=== PATIENT | male | born 1945 | race Caucasian/White ===

== ENCOUNTER 2021-02-04 06:43 | Inpatient (IN) | payer OTHER ==
[~2021-02-04] VITALS: Ht 185.4 cm; Wt 108.4 kg
[2021-02-04] VITALS (13 sets, daily range): BP systolic 126–1478; BP diastolic 59–87
[~2021-02-04 06:43] MED LIST: ASPIR 8181 MG PO; ENFORGE PO; PEPCID40 MG PO; PHENERGAN 25 MG25 M1 PO; PROMS25 WY RECTAL
[2021-02-04 07:07] LABS: ABSOLUTE NEUTROPHILS 7.6 thou/uL (1.4-8.2); BASOPHILS 1.3 % (0.0-2.0); EOSINOPHILS 1.9 % (0.0-3.0); HEMATOCRIT 42.5 % (42.0-52.0); HEMOGLOBIN 14.3 gm/dL (14.0-18.0); LYMPHOCYTES 22.9 % (24.0-44.0); MCH 29.6 pg (26.0-34.0); MCHC 33.5 g/dL (28.0-37.0); MCV 88.2 fL (80.0-100.0); MONOCYTES 8.9 % (1.0-8.0); PLATELET COUNT 220 thou/uL (150-400); RBC 4.82 mil/uL (4.50-6.00); RDW 13.3 % (10.5-14.5); WBC 11.7 thou/uL (4.0-11.0)
[2021-02-04] MEDS ORDERED: VALSARTAN PO (07:07)
[2021-02-04] MEDS ORDERED: AMLODIPINE PO (07:07)
[2021-02-04 07:18] LABS: CALCIUM 8.6 mg/dL (8.5-10.1)
[2021-02-04 07:19] LABS: POTASSIUM 4.1 mmol/L (3.5-5.1)
--- NOTE | 2021-02-04 07:27 | EKG ---
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1945 Requested By: Isabelle Sarmiento Order Number: [id number] MD: Sam Nobles Measurements Intervals [place] Rate: 59 P: 70 OR: 185 QRS: 54 QRSD: 97 T: 83 QT: 422 QTc: 418 Interpretive Statements Sinus rhythm Inferior infarct, old 1/[address] elecvation inferior leads Compared to ECG 12/10/2015 08:32:04 Myocardial infarct finding now present Atrial premature complex(es) no longer present Electronically Signed On 02-04-2021 7:26:51 CDT by Sam Nobles [email or web address] <ELECTRONICALLY SIGNED> By: Sam Nobles MD, [facility] 02/04/21 0726 0649 8 Sam Nobles MD, FACC /EPI
[2021-02-04 07:28] LABS: PROTIME 10.4 Seconds (9.3-11.4); TOTAL BILIRUBIN 0.4 mg/dL (0.2-1.0); TOTAL PROTEIN 7.7 g/dL (6.4-8.2); TROPONIN-I 0.1 ng/mL (<0.06)
[2021-02-04 07:35] LABS: D-DIMER 0.34 ug/mLFEU (0.19-0.50)
[2021-02-04] MEDS ORDERED: COSOPT OCUMETER10 M1 EA. EYE (08:36)
[2021-02-04 09:47] LABS: CHOLESTEROL 173 mg/dL (<200); HDL CHOLESTEROL 48 mg/dL (>40); LDL CHOLESTEROL 104 mg/dL (<100); TC:HDL 3.6 Ratio (Not establshd); TRIGLYCERIDE 105 mg/dL (<150); VLDL 21 mg/dL (<40)
[2021-02-04 23:06] LABS: GLYCOHEMOGLOBIN (HGB A1C) 5.5 % (4.8-5.6)
[2021-02-05 00:10] VITALS: BP 118/65
[2021-02-05 03:35] VITALS: BP 105/68
[2021-02-05 04:54] LABS: BASOPHILS 0.6 % (0.0-2.0); EOSINOPHILS 0.2 % (0.0-3.0); HEMATOCRIT 39.2 % (42.0-52.0); LYMPHOCYTES 17.6 % (24.0-44.0); MCH 29.6 pg (26.0-34.0); MCHC 33.2 g/dL (28.0-37.0); MCV 89.1 fL (80.0-100.0); MONOCYTES 13.1 % (1.0-8.0); PLATELET COUNT 197 thou/uL (150-400); POLYS 68.5 % (36.0-66.0); RDW 13.7 % (10.5-14.5); WBC 13.1 thou/uL (4.0-11.0)
[2021-02-05 05:15] LABS: ALBUMIN 3.5 g/dL (3.4-5.0); CALCIUM 8.1 mg/dL (8.5-10.1); CREATININE 1.1 mg/dL (0.7-1.3); POTASSIUM 4.1 mmol/L (3.5-5.1); TOTAL BILIRUBIN 0.4 mg/dL (0.2-1.0); TOTAL PROTEIN 6.9 g/dL (6.4-8.2)
[2021-02-05 05:23] LABS: TROPONIN-I 51.46 ng/mL (<0.06)
--- NOTE | 2021-02-05 07:03 | EKG ---
[place] [address] [facility] [place] [address] ELECTROCARDIOGRAM REPORT Name: KAROLINA FANG Room #: 212-P ADM IN M.R.#: [id number] Admission: 02/04/21 Attend Phys: Jt Barrett MD Discharge: Date of : 47 Report #: [id number] 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 : 1945 Requested By: Jonas Hummel Order Number: [id number] MD: Sam Nobles Measurements Intervals [place] Rate: 56 P: 72 [place]: 175 QRS: 24 QRSD: 103 T: -17 QT: 436 QTc: 421 Interpretive Statements Sinus rhythm Abnormal R-wave progression, early transition Inferior infarct, age indeterminate Compared to ECG 02/04/2021 06:49:35 No significant changes Electronically Signed On 02-05-2021 7:03:17 CDT by Sam Nobles [email or web address] <ELECTRONICALLY SIGNED> By: Sam Nobles MD, [facility] 02/05/21702 06 Sam Nobles MD, [facility] /EPI
[2021-02-05] MEDS ORDERED: ASPIRIN325 PO (08:52)
[2021-02-05] MEDS ORDERED: CLOPIDOGREL75 MG PO (08:52)
[2021-02-05] MEDS ORDERED: PACERONE 200 M200 M1 PO (08:52)
[2021-02-05] MEDS ORDERED: METOPROLOL TART25 MG PO (08:52)
[2021-02-05] MEDS ORDERED: LIPITOR40 MG PO (08:52)
--- NOTE | 2021-02-05 09:21 | 2DMMODE ---
[facility] [place] [address] 2 D/M-MODE ECHOCARDIOGRAM Name: KAROLINA FANG Room #: 212-P ADM IN M.R.#: [id number] Admission: 02/04/21 Attend Phys: Jt Barrett MD Discharge: Date of : 47 Report #: [id number] THIS REPORT FOR: cc: Artie Dean MD, Kirk D. MD Santiago, Patrick MD [facility] ~ APPROVED REPORT Study performed: 02/05/2021 06:18:17 EXAM: Comprehensive 2D, Doppler, and color-flow Echocardiogram Patient Location: Bedside Room #: 212 Status: routine BSA: 2.30 HR: 55 bpm BP: 105/68 mmHg Rhythm: NSR/PACs Other Information Study Quality: Fair Technically limited study due to obesity. Indications Chest pain, shortness of breath. Hx: HTN. Echo Enhancing Agent Indication: Endocardial border delineation Agent(s) / Amount(s) Used: Optison 3 cc 2D Dimensions RVDd: 34.46 mm IVSd: 10.39 (7-11mm) LVOT Diam: 21.31 (18-24mm) LVDd: 42.01 mm PWd: 9.95 (7-11mm) Ascending Ao: 31.44 (22-36mm) LVDs: 27.67 (25-40mm) Aortic Root: 32.69 mm Volumes Left Atrial Volume (Systole) Single Plane 4CH: 66.92 mL Single Plane 2CH: 68.75 mL Aortic Valve [facility] [address] [place] [address] 2 D/M-MODE ECHOCARDIOGRAM Name: KAROLINA FANG Room #: 212-[facility] IN [facility].#: [id number] Admission: 02/04/21 Attend Phys: Joshua Dwyer Discharge: Date of : 47 Report #: [id number] AoV Peak Manolo.: 1.14 m/s AO Peak Gr.: 5.24 mmHg Mitral Valve E/A Ratio: 1.1 MV Decel. Time: 187.12 ms MV E Max Manolo.: 0.76 m/s MV A Manolo.: 0.69 m/s MV PHT: 54.26 ms IVRT: 64.59 ms Pulmonary Valve PV Peak Manolo.: 0.79 m/s PV Peak Gr.: 2.47 mmHg Pulmonary Vein P Vein S: 0.40 m/s P Vein A: 0.26 m/s P Vein D: 0.27 m/s P Vein A Dur.: 120.0 msec P Vein S/D Ratio: 1.48 Tricuspid Valve TR Peak Manolo.: 2.19 m/s RAP Estimate: 15.00 mmHg TR Peak Gr.: 19.25 mmHg PA Pressure: 34.00 mmHg Left Ventricle The left ventricle is normal size. There is normal left ventricular wall thickness. Left ventricular systolic function is normal. LVEF is 50-55%. The left ventricular diastolic function is normal. Right Ventricle The right ventricle is normal size. The right ventricular systolic function is normal. Atria The left atrium size is normal. The right atrium size is normal. Aortic Valve Aortic valve is trileaflet. Leaflets are mildly calcified. Trace aortic regurgitation. There is no aortic valvular stenosis. Mitral Valve The mitral valve is normal in structure. There is no mitral valve regurgitation noted. No evidence of mitral valve stenosis. Tricuspid Valve [facility] [address] [place] [address] 2 D/M-MODE ECHOCARDIOGRAM Name: KAROLINA FANG Room #: 212-P [facility] IN .R.#: [id number] Admission: 02/04/21 Attend Phys: Joshua Dwyer Discharge: Date of : 47 Report #: [id number] The tricuspid valve is normal in structure. Mild to moderate tricuspid regurgitation. Estimated PAP is 30-35mmHg. Pulmonic Valve Pulmonic valve is not well visualized. There is no pulmonic valvular regurgitation. Great Vessels The aortic root is normal in size. The ascending aorta is normal in size. IVC is dilated and collapses <50% with inspiration. Pericardium There is no pericardial effusion. <Conclusion> Normal left ventricular size/wall thickness and Ejection fraction 55% with minimal inferobasilar hypokinesis Normal right ventricular size/function Normal atrial size Color-flow Doppler study was performed of the aortic/mitral/tricuspid/pulmonary valve Normal aortic/mitral valve structure and function Mild pulmonary hypertension Pulmonary systolic pressure estimated 35 mmHg No pericardial effusion Normal aortic root size. <ELECTRONICALLY SIGNED> By: Sam Nobles MD, FACC 02/05/21920 0 0 Sam Nobles MD, FACC /INF
[2021-02-05 09:44] VITALS: BP 135/60
--- NOTE | 2021-02-05 09:49 | CATHLAB ---
[facility] [place] [address] INVASIVE PROCEDURE REPORT Name: KAROLINA FANG Charlene Room #: 212-P ADM IN M.R.#: [id number] Admission: 02/04/21 Attend Phys: Jt Barrett MD Discharge: Date of : 47 Report #: [id number] THIS REPORT FOR: cc: Artie Dean MD, Kirk D. MD Park, Jin S. MD ~ APPROVED REPORT Study performed: 02/04/2021 12:12:37 Patient Details Patient Status: ED Room #: The patient is a 75 year-old male Event Personnel Jonas Hummel Jet Piercer Operator, Bushra Garrett RTR Monitor, Hazel Kwong RTR, Tarun Macias Dexter RN RN, Mychal Amin RTR Shafting Cleaner Procedures Performed Art Access - R femoral artery* Left Heart Cath w/or w/o Coronaries [id number] [facility] DAVID Place w/wo Plasty Single RCA 542455 Hemostasis w/ Mynx 24476 Initial Mod Sed Same Phys/QHP Gr5y 670237 17302 Mod Sed Same Phys/QHP Ea 830127 Indication Non-STEMI , Dyspnea, Chest pain Risk Factors Hypercholesterolemia, Hypertension Procedure Narrative The Right Groin^ was infiltrated with 1% Lidocaine subcutaneous anesthesia. A PINNACLE 6FR Sheath #[id number] sheath was inserted into the RFA^. Coronary angiography was performed using coronary diagnostic catheters. The right coronary system was accessed and visualized with a JR4 catheter. The left coronary system was accessed and visualized with a JL4 catheter. The left ventricle was accessed and visualized with a PIGTAIL catheter. Left ventriculogram was performed in 30 degree projection. Pre-demployment femoral angiogram was performed . Closure device was deployed with a Fr MYNXGRIP 6/7F #[id number]. The patient tolerated the procedure well and there were no complications associated with the procedure. There was no hematoma. [facility] [address] [place] [address] INVASIVE PROCEDURE REPORT Name: KAROLINA FANG Room #: 212-P [facility] IN ..#: [id number] Admission: 02/04/21 Attend Phys: Joshua Dwyer Discharge: Date of : 47 Report #: [id number] Intraoperative Conscious Sedation Sedation start time: 13:07 Case end Time: 14:26 Fentanyl 100 mcg Versed 1 mg Fluoro Time: 11.70 minutes Dose: DAP 26606.10 cGycm2 3602 mGy Contrast Type and Amount: Omnipaque 217 ml Coronary Angiography The patient's coronary anatomy is co- dominant. Diagnostic Cath Left Main The left main artery is a short segment, patent with no flow-limiting lesions. LAD The LAD is a moderate-sized caliber vessel, traverses the anterior wall and wraps around the apex. There is a mild to moderate disease in the midsegment, 30 to 40%. Diagonal 1 This is a small to moderate-sized caliber vessel, with a moderate ostial stenosis. Diagonal 2 This is a moderate-sized caliber vessel, patent with no flow-limiting lesions. Circumflex The left circumflex artery is a codominant vessel, with mild to moderate disease in the midsegment, 30 to 40%. OM1 This is a small caliber vessel with a moderate ostial stenosis. OM2 This is a moderate-sized caliber vessel, supplies several branches as it travels the inferolateral wall. This vessel is patent with no flow-limiting lesions. OM3 This is a small caliber vessel, patent with no flow-limiting lesions. Right Coronary The RCA is totally occluded in the proximal segment. The PDA is partially filled via collaterals. Left Ventriculography The left ventricle is normal in size with Abnormal contractility. The left ventricular ejection fraction is estimated to be 40-45%. Left ventricular wall motion abnormalities are present. There is hypokinesis of the mid to basal inferior wall. Hemodynamics The aortic pressure is 150/63 mmHg with a mean of 96 mmHg. The left ventricular pressure is 155/5 mmHg with a mean of mmHg. The left ventricular end diastolic pressure is 29 mmHg. [facility] [address] [place] [address] INVASIVE PROCEDURE REPORT Name: KAROLINA FANG Room #: 212-P [facility] IN M.R.#: [id number] Admission: 02/04/21 Attend Phys: Joshua Dwyer Discharge: Date of : 47 Report #: [id number] PCI Technique Lesion Percutaneous coronary intervention was performed on the proximal right coronary artery. The lesion stenosis prior to intervention was 100% with MARLA 1 flow. A VISTA 6FR JR 4 #[id number] Guide Catheter was used to engage the ostium. A Luge Wire .014 x 182CM #[id number] Interventional Guidewire was used to cross the lesion. BALLOON DILATION A Balloon catheter Euphora RX 2.5 x 12 #[id number] was inserted and inflated up to 14.00atm for 16seconds. STENT DEPLOYMENT A drug-eluting stent RESOLUTE MALACHI RX 3.0 X 15 #[id number] was inserted and inflated up to 12.00atm for 14seconds. POST STENT DEPLOYMENT BALLOON DILATION A Balloon catheter TREK NC RX 3.5 X 8 #[id number] was inserted and inflated up to 14.00atm for 14seconds. Additional Inflation: 18.00atm for 15seconds. After postdilating the stent with a 3.5 mm noncompliant balloon, there appeared to be filling defects within the proximal stent, consistent with thrombus. The patient remained hemodynamically stable. The patient was treated with Integrilin and additional high-pressure balloon dilatation was performed with a NC TREK 3.25mm x 12mm RX was inflated 16 Jamie for 21 Sesconds. Final angiography reveals 5 % stenosis with MARLA 3 flow. PCI Technique Lesion 2 Percutaneous Coronary Intervention was performed on the distal right coronary artery. The lesion stenosis prior to intervention was 80% with MARLA 1 flow. A VISTA 6FR JR 4 #[id number] Guide Catheter was used to engage the ostium. A Luge Wire .014 x 182CM #[id number] Interventional Guidewire was used to cross the lesion. Stent Deployment A drug-eluting stent RESOLUTE MALACHI RX 2.25 X 12 #[id number] was inserted and inflated up to 14.00atm for 23seconds. Final angiography reveals 0 % stenosis with MARLA 3 flow. Conclusion 1. Successful insertion of drug-eluting stents into the proximal and distal segments of the RCA. 2. There is mild to moderate disease in the LAD and left circumflex arteries. [facility] [address] [address] INVASIVE PROCEDURE REPORT Name: KAROLINA FANG Room #: 212-P ADM IN M.R.#: [id number] Admission: 02/04/21 Attend Phys: Joshua Dwyer Discharge: Date of : 47 Report #: [id number] 3. There is mild to moderate segmental LV dysfunction. 4. Recommend dual antiplatelet therapy and aggressive risk factor management. <ELECTRONICALLY SIGNED> By: Jonas Hummel MD 02/05/2149 8 8 Jonas Hummel MD /INF
--- NOTE | 2021-02-05 11:18 | NUR ---
assessment: CM REVIEWED CHART AND SPOKE WITH PATIENT. PT IS ALERT AND ORIENTED X4. PT WAS ADMITTED FOR CHEST PAIN/ NSTEMI. PT REPORTS THAT HE LIVES IN A HOUSE WITH HIS IN [place], [place]. PT REPORTS HE HAS A RAMP TO ENTER HIS HOME AND HAS A ELEVATOR IN THE HOME TO AVOID STEPS. PT REPORTS THAT HE NORMALLY AMBULATES INDEPENDENTLY BUT STATES THEY HAVE PLENTY OF DME AT HOME IF HE WOULD EVER NEED IT. PT REPORTS HAVING CANES, WALKERS, GRAB BARS, AND A SHOWER CHAIR. PT REPORTS HE HIMSELF HAS NOT HAD HH IN THE PAST BUT IS REQUESTING THIS AT DISCHARGE TO HELP WITH HIS MEDICATIONS. CM DISCUSSED HH OPTIONS AND PT HAS NO PREFERENCE. CM SENT REFERRAL TO [facility] HH AND AWAITING INPUT AT THIS TIME. PT REPORTS HIS PCP IS DR.KIRK CARRASCO IN [place], [place]. IF PATIENT PROGRESSES POSSIBLE DISCHARGE TOMORROW. CM WILL CONTINUE TO FOLLOW TO ASSIST NEEDED.
[2021-02-05 11:21] VITALS: BP 135/60
[2021-02-05 12:39] VITALS: BP 164/50
--- NOTE | 2021-02-05 12:41 | EKG ---
[facility] [place] [address] ELECTROCARDIOGRAM REPORT Name: QUINCATRACHITAKAROLINA Room #: 212-P ADM IN M.R.#: [id number] Admission: 02/04/21 Attend Phys: Jt Barrett MD Discharge: Date of : 47 Report #: [id number] [facility] Test Date: 2021-02-05 Test Time: 07:05:25 Pat Name: KAROLINA FANG Department: Room: 212 P Gender: M Residency Coordinator: ISH : 1945 Requested By: Jonas Hummel Order Number: [id number] MD: Amdao Franklin Measurements Intervals [place] Rate: 55 P: 47 [place]: 184 QRS: 0 QRSD: 91 T: -19 QT: 435 QTc: 416 Interpretive Statements Sinus bradycardia Abnormal R-wave progression, early transition Inferior infarct, age indeterminate Compared to ECG 02/04/2021 16:07:50 No significant changes found Electronically Signed On 02-05-2021 12:40:53 CDT by Amado Franklin [email or web address] <ELECTRONICALLY SIGNED> By: Amado Franklin MD, [facility] 02/05/21 1240 4 4 Amado Franklin MD, [facility] /EPI
--- NOTE | 2021-02-05 14:36 | NUR ---
AAOX4. DENIES CP, SOA. RIGHT GROIN SITE SOFT, NONTEDER, CDI. G.I. CONSULTED FOR DYSPHAGIA. SINUS JACKIE PER TELE. ACCIDENTALLY DISCONTINUED HIS SALINE LOCK. CARDIAC NURSE AMBULATES, VS STABLE. FALL PRECAUTIONS IN PLACE.
[2021-02-05 20:15] VITALS: BP 118/66
[2021-02-06 05:24] VITALS: BP 130/60
--- NOTE | 2021-02-06 07:19 | NUR ---
PATIENT CARES WERE ASSUMED AT SHIFT CHANGE. PATIENT WAS ASSESSED AND MEDS WERE PASSED. PATIENT READY TO GO HOME. ROUNDS WERE DONE AND PATIENT DID SLEEP MOST OF THIS SHIFT.
[2021-02-06 08:00] VITALS: BP 121/54
[2021-02-06] MEDS ORDERED: PROTONIX40 M2 PO (11:39)
[2021-02-06 12:36] VITALS: BP 135/60
--- NOTE | 2021-02-06 13:52 | NUR ---
PT IS AX0X4, PLEASANT, DENIES PAIN, SITTING UP IN CHAIR. PT VSS, BASELINE IS SINUS JACKIE ON MONITOR; AFEBRILE. DR SWANSON CONSULTED, CARDIAC STOREROOM SUPERVISOR CONSULTED, DR MALONE CONSULTED. PT TO DISCHARGE TODAY WITH FOLLOW UP ONE WEEK WITH DR SWANSON. DISCHARGE EDUCATION CONDUCTED ON FOLLOW UP APPT AND NEW RX. PT COMMUNICATED UNDERSTANDING. PT DISCHARGED HOME WITH DAUGHTER VIA PERSONAL VEHICLE.
--- NOTE | 2021-02-06 15:10 | NUR ---
FAXED DC ORDERS/SUMMARY TO [facility] RECEIVED CONFIRMATION AND SPOKE WITH KAYDEN IN ADM SHE WILL ARRANGE VISITS WITH PT.
== END 2021-02-06 13:54 | disposition home health service (06) | DRG 246 ==
LOC: ER 06:43 → 2N 09:56 → EROBS 09:56 → 2N 11:28
PROVIDERS: Emergency Medicine; Internal Medicine Cardiovascular Disease; Nurse Practitioner; Nurse Practitioner Adult Health; ADMIT Hospitalist; ATTEND Hospitalist
DX: I21.4 Non-ST elevation (NSTEMI) myocardial infarction (principal); R65.11 Systemic inflammatory response syndrome (SIRS) of non-infectious origin with acute organ dysfunction; I50.31 Acute diastolic (congestive) heart failure; I47.1 Supraventricular tachycardia; I25.10 Atherosclerotic heart disease of native coronary artery without angina pectoris; I10 Essential (primary) hypertension; R00.1 Bradycardia, unspecified; F41.9 Anxiety disorder, unspecified; E66.9 Obesity, unspecified; E78.5 Hyperlipidemia, unspecified; R13.10 Dysphagia, unspecified; D72.828 Other elevated white blood cell count; K21.9 Gastro-esophageal reflux disease without esophagitis; Z79.82 Long term (current) use of aspirin; Z79.899 Other long term (current) drug therapy; Z87.891 Personal history of nicotine dependence; Z68.31 Body mass index [BMI] 31.0-31.9, adult
CPT/HCPCS: 10081

== ENCOUNTER → 2021-02-13 | Outpatient (CLI) | payer OTHER ==
[~2021-02-13] MED LIST changes: +AMLODIPINE PO; +ASPIRIN325 PO; +CLOPIDOGREL75 MG PO; +COSOPT OCUMETER10 M1 EA. EYE; +LIPITOR40 MG PO; +METOPROLOL TART25 MG PO; +PACERONE 200 M200 M1 PO; +PROTONIX40 M2 PO; +VALSARTAN PO
== END ==
LOC: SJCVC 12:44
PROVIDERS: ATTEND Internal Medicine
DX: I25.10 Atherosclerotic heart disease of native coronary artery without angina pectoris (principal); I10 Essential (primary) hypertension; E78.5 Hyperlipidemia, unspecified; I25.2 Old myocardial infarction; E66.9 Obesity, unspecified; Z98.890 Other specified postprocedural states; Z95.5 Presence of coronary angioplasty implant and graft; Z79.82 Long term (current) use of aspirin; Z79.899 Other long term (current) drug therapy; Z87.891 Personal history of nicotine dependence

== ENCOUNTER → 2021-03-04 | Outpatient (CLI) | payer OTHER | LOC: SJCVC 12:33 | PROVIDERS: ATTEND Internal Medicine | DX: I25.10 Atherosclerotic heart disease of native coronary artery without angina pectoris (principal); E78.5 Hyperlipidemia, unspecified; I10 Essential (primary) hypertension; E78.00 Pure hypercholesterolemia, unspecified; E66.9 Obesity, unspecified; H40.9 Unspecified glaucoma; F41.9 Anxiety disorder, unspecified; Z87.891 Personal history of nicotine dependence; Z79.82 Long term (current) use of aspirin; Z79.899 Other long term (current) drug therapy ==

== ENCOUNTER → 2021-04-02 | Outpatient (CLI) | payer OTHER | LOC: SJCVC 13:03 | PROVIDERS: ATTEND Internal Medicine | DX: R94.31 Abnormal electrocardiogram [ECG] [EKG] (principal); I25.10 Atherosclerotic heart disease of native coronary artery without angina pectoris; E78.5 Hyperlipidemia, unspecified; E78.00 Pure hypercholesterolemia, unspecified; E66.01 Morbid (severe) obesity due to excess calories; H40.9 Unspecified glaucoma; F41.9 Anxiety disorder, unspecified; Z87.891 Personal history of nicotine dependence; Z79.82 Long term (current) use of aspirin; Z79.899 Other long term (current) drug therapy ==

== ENCOUNTER → 2021-06-18 | Outpatient (CLI) | payer OTHER | LOC: SJCVC 10:22 | PROVIDERS: ATTEND Internal Medicine | DX: I25.10 Atherosclerotic heart disease of native coronary artery without angina pectoris (principal); I25.2 Old myocardial infarction; I10 Essential (primary) hypertension; E78.00 Pure hypercholesterolemia, unspecified; E66.9 Obesity, unspecified; E78.5 Hyperlipidemia, unspecified; Z98.890 Other specified postprocedural states; Z79.82 Long term (current) use of aspirin; Z79.899 Other long term (current) drug therapy; Z87.891 Personal history of nicotine dependence; Z82.49 Family history of ischemic heart disease and other diseases of the circulatory system ==

== ENCOUNTER → 2021-07-30 | Outpatient (CLI) | payer OTHER | LOC: SJCVC 08:36 | PROVIDERS: ATTEND Internal Medicine | DX: Z13.220 Encounter for screening for lipoid disorders (principal); I25.10 Atherosclerotic heart disease of native coronary artery without angina pectoris; I10 Essential (primary) hypertension; E78.5 Hyperlipidemia, unspecified; F41.9 Anxiety disorder, unspecified; Z79.899 Other long term (current) drug therapy; Z79.82 Long term (current) use of aspirin; Z87.891 Personal history of nicotine dependence ==

== ENCOUNTER 2021-09-07 20:17 | Emergency (ER) | payer OTHER ==
[~2021-09-07] VITALS: Ht 188 cm; Wt 104.3 kg
[2021-09-07] MEDS ORDERED: CELEXA 20 MG TA20 MG PO (20:31)
[2021-09-07] MEDS ORDERED: AMLODIPINE VALSARTAN PO (20:32)
[2021-09-07] MEDS ORDERED: ASA81BEC PO (20:33)
[2021-09-07] MEDS ORDERED: PROBIOTIC1 EAC7 PO (20:34)
[2021-09-07 20:46] LABS: ABSOLUTE NEUTROPHILS 7.1 thou/uL (1.4-8.2); BASOPHILS 0.9 % (0.0-2.0); EOSINOPHILS 2.1 % (0.0-3.0); HEMATOCRIT 37.2 % (42.0-52.0); HEMOGLOBIN 12.8 gm/dL (14.0-18.0); LYMPHOCYTES 23.5 % (24.0-44.0); MCHC 34.3 g/dL (28.0-37.0); MCV 87.4 fL (80.0-100.0); MONOCYTES 12.7 % (1.0-8.0); PLATELET COUNT 300 thou/uL (150-400); POLYS 60.8 % (36.0-66.0); RBC 4.26 mil/uL (4.50-6.00); RDW 13.8 % (10.5-14.5); WBC 11.7 thou/uL (4.0-11.0)
[2021-09-07 21:01] LABS: CALCIUM 8.8 mg/dL (8.5-10.1); CREATININE 1.1 mg/dL (0.7-1.3); POTASSIUM 4.7 mmol/L (3.5-5.1)
[2021-09-07 21:07] LABS: ALBUMIN 3.2 g/dL (3.4-5.0); TOTAL BILIRUBIN 0.5 mg/dL (0.2-1.0); TOTAL PROTEIN 7.7 g/dL (6.4-8.2)
[2021-09-07] MEDS ORDERED: LASIX 40 MG TAB40 MG PO (22:13)
[2021-09-07 22:36] VITALS: BP 150/76
--- NOTE | 2021-09-08 12:33 | EKG ---
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 : 1945 Requested By: Christopher Rocha Order Number: [id number] MD: Amado Franklin Measurements Intervals [place] Rate: 58 P: 45 ID: 184 QRS: 14 QRSD: 85 T: -5 QT: 435 QTc: 428 Interpretive Statements Sinus bradycardia Probable inferior infarct, age indeterminate Compared to ECG 02/05/2021 07:05:[address] segment abnormality is less prominent Electronically Signed On 09-08-2021 12:33:09 WHITE LEAD GRINDER by Amado Franklin [email or web address] <ELECTRONICALLY SIGNED> By: Amado Franklin MD, [facility] 09/08/21 1233 2108 2108 Amado Franklin MD, FACC /EPI
== END 2021-09-07 22:38 | disposition home or self-care (01) ==
LOC: ER 20:17
PROVIDERS: Emergency Medicine
DX: M25.572 Pain in left ankle and joints of left foot (principal); Z20.822 Contact with and (suspected) exposure to COVID-19; M25.571 Pain in right ankle and joints of right foot; R60.9 Edema, unspecified; I10 Essential (primary) hypertension; F41.9 Anxiety disorder, unspecified; Z79.899 Other long term (current) drug therapy

== ENCOUNTER → 2021-09-10 | Outpatient (CLI) | payer OTHER ==
[~2021-09-10] MED LIST changes: +AMLODIPINE VALSARTAN PO; +ASA81BEC PO; +CELEXA 20 MG TA20 MG PO; +LASIX 40 MG TAB40 MG PO; +PROBIOTIC1 EAC7 PO
== END ==
LOC: SJCVC 10:31
PROVIDERS: ATTEND Internal Medicine
DX: R60.0 Localized edema (principal); I10 Essential (primary) hypertension; H40.9 Unspecified glaucoma; E78.00 Pure hypercholesterolemia, unspecified; E66.8 Other obesity; I25.10 Atherosclerotic heart disease of native coronary artery without angina pectoris; E78.5 Hyperlipidemia, unspecified; F41.9 Anxiety disorder, unspecified; Z79.82 Long term (current) use of aspirin; Z79.899 Other long term (current) drug therapy; Z87.891 Personal history of nicotine dependence; Z95.818 Presence of other cardiac implants and grafts; Z95.5 Presence of coronary angioplasty implant and graft

== ENCOUNTER → 2021-09-24 | Outpatient (CLI) | payer OTHER | LOC: SJCVC 10:37 | PROVIDERS: ATTEND Internal Medicine | DX: E78.00 Pure hypercholesterolemia, unspecified (principal); F41.9 Anxiety disorder, unspecified; I25.10 Atherosclerotic heart disease of native coronary artery without angina pectoris; E78.5 Hyperlipidemia, unspecified; I10 Essential (primary) hypertension; E66.9 Obesity, unspecified; Z95.818 Presence of other cardiac implants and grafts; Z87.891 Personal history of nicotine dependence; Z79.82 Long term (current) use of aspirin; Z79.899 Other long term (current) drug therapy; Z82.49 Family history of ischemic heart disease and other diseases of the circulatory system ==

== ENCOUNTER → 2021-11-19 | Outpatient (CLI) | payer OTHER | LOC: SJCVC 10:27 | PROVIDERS: ATTEND Internal Medicine | DX: E78.00 Pure hypercholesterolemia, unspecified (principal); Z13.220 Encounter for screening for lipoid disorders; I10 Essential (primary) hypertension; E78.5 Hyperlipidemia, unspecified; I25.10 Atherosclerotic heart disease of native coronary artery without angina pectoris; R94.31 Abnormal electrocardiogram [ECG] [EKG]; Z95.5 Presence of coronary angioplasty implant and graft; Z87.891 Personal history of nicotine dependence; Z79.82 Long term (current) use of aspirin; Z79.899 Other long term (current) drug therapy ==